=== PATIENT | female | born 1965 | race Two or more races ===

== ENCOUNTER 2021-12-17 01:39 | Emergency (ER) | payer SELFPAY ==
--- NOTE | 2021-12-17 02:23 | NUR ---
CALLED PT IN WAITING ROOM AND OUTSIDE, NO RESPONSE.
--- NOTE | 2021-12-17 03:00 | NUR ---
Called again, pt LWBS. Dr. Robles made aware.
== END 2021-12-17 03:50 | disposition left against medical advice (07) ==
LOC: ER 01:55
DX: Z53.21 Procedure and treatment not carried out due to patient leaving prior to being seen by health care provider (principal)